=== PATIENT | male | born 1955 | race Caucasian/White ===

== ENCOUNTER 2024-08-04 20:09 | Emergency (ER) | payer SELFPAY ==
[~2024-08-04] VITALS: Ht 167.6 cm; Wt 80.0 kg
[2024-08-04 20:19] VITALS: BP 118/71; PULSE 64; RESP 12; TEMP 98.1; O2SAT 99
== END 2024-08-08 13:58 | disposition home or self-care (01) ==
LOC: ER 20:09
DX: T83.018A Breakdown (mechanical) of other urinary catheter, initial encounter (principal); E11.9 Type 2 diabetes mellitus without complications; I10 Essential (primary) hypertension; Z99.3 Dependence on wheelchair; X58.XXXA Exposure to other specified factors, initial encounter
CPT/HCPCS: 51702; 99284